=== PATIENT | male | born 1940 | race American Indian/Alaskan Native ===

== ENCOUNTER 2019-01-06 08:24 | Day surgery (SDC) | payer MEDICARE ==
[~2019-01-06 08:24] MED LIST: ceFAZolin/STERILE WATER 2 GM/20 ML SYRINGE IV NR
--- NOTE | 2019-01-06 08:51 | Anesthesia Consultation ---
Anesthesia Consult and Med Hx Date of service: 01/06/19 - Airway Anesthetic Teeth Evaluation: Dentures (upper) ROM Head & Neck: Adequate Mental/Hyoid Distance: Adequate Mallampati Class: Class II Intubation Access Assessment: Probably Good - Pulmonary Exam CTA: Yes - Cardiac Exam Cardiac Exam: RRR - Pre-Operative Health Status ASA Pre-Surgery Classification: ASA2 Proposed Anesthetic Plan: General - Pulmonary Hx Smoking: Yes (former social smoker) Hx Respiratory Symptoms: No Hx Sleep Apnea: Yes (documented but patient denies) - Cardiovascular System Hx Hypertension: Yes (documented but patient denies) Hx Heart Attack/AMI: No (>4mets functional capacity) Hx Percutaneous Transluminal Coronary Angioplasty (PTCA): No Hx Cardia Arrhythmia: Yes (was told he had occ. irreg. heart beat but no official dx) - Central Nervous System Hx Seizures: No CVA: No Hx Psychiatric Problems: No (??? SLIGHT DEMENTIA) - Gastrointestinal Hx Gastroesophageal Reflux Disease: No - Endocrine Hx Renal Disease: No Hx Liver Disease: No Hx Insulin Dependent Diabetes: No Hx Non-Insulin Dependent Diabetes: No Hx Thyroid Disease: No - Hematic Hx Anemia: No - Other Systems Hx Alcohol Use: No Hx Substance Use: Yes (MARIJUANA 1 OR 2 JOINTS A DAY) Hx Cancer: Yes (hx prostate ca) Hx Obesity: No - Additional Comments Anesthesia Medical History Comments: No hx anesthetic complications.
--- NOTE | 2019-01-06 08:52 | Anesthesia Day of Surgery ---
Anesthesia Day of Surgery - Day of Surgery Patient Examined: Yes Patient H&P Reviewed: Yes Patient is NPO: Yes
[2019-01-06] MEDS ORDERED: fentaNYL 100 MCG/2 ML INJ IV PRN (09:00)
[2019-01-06] MEDS ORDERED: LACTATED RINGERS 1,000 ML IV SCH (09:00)
[2019-01-06] MEDS ORDERED: LIDOCAINE MPF (2%) 20 MG/1 ML VIAL 5 ML ONE (09:28)
[2019-01-06] MEDS ORDERED: PROPOFOL 200 MG/20 ML VIAL IV ONE (09:29)
[2019-01-06] MEDS ORDERED: fentaNYL 100 MCG/2 ML INJ ONE (09:29)
[2019-01-06] MEDS ORDERED: ONDANSETRON 4 MG/2 ML INJ ONE (09:57)
[2019-01-06] MEDS ORDERED: dexAMETHasone 20 MG/5 ML VIAL ONE (09:57)
[2019-01-06] MEDS ORDERED: PHENYLEPHRINE/NS 1,000 MCG/10 ML SYRINGE (OR USE) IV ONE (10:03)
[2019-01-06] MEDS ORDERED: WATER FOR IRRIG STERILE 2000 ML IR ONE (10:15)
--- NOTE | 2019-01-06 10:32 | Short Stay Summary ---
Short Stay Documentation Date of service: 01/06/19 Narrative H&P: 78 yr old with prostate cancer & recurrent urethral stricture - History Past Medical History: other (prostate cancer) Past Surgical History: Other (prostate seeds 1989----[facility]) - Allergies and Medications Current Medications: Allergies No Known Allergies Allergy (Verified 01/03/19 12:53) Home Medications Medication Instructions Recorded Confirmed Last Taken Type Calcitriol [Rocaltrol] 0.25 mg PO DAILY 01/03/19 01/03/19 Unknown History Eligen B12 Tablet 1,000 mcg PO DAILY 01/03/19 01/03/19 Unknown History Iron 65 mg PO DAILY 01/03/19 01/03/19 Unknown History Multivit-Min/FA/Lycopen/Lutein 1 each PO DAILY 01/03/19 01/03/19 Unknown History [Centrum Silver Men Tablet] Nitrofurantoin [place]/M-Cryst 100 mg PO BID 01/03/19 01/03/19 Unknown History [Macrobid CAP] Anthony-3/Dha/Epa/Fish Oil [Extreme 1 cap PO DAILY 01/03/19 01/03/19 Unknown History Anthony-3 Microgel Sftgl] Sv [place] Oil 1,000 mg Softgel 1,000 mg PO DAILY 01/03/19 01/03/19 Unknown History Tamsulosin [Flomax] 0.8 mg PO DAILY 01/03/19 01/03/19 Unknown History Turmeric 1,000 mg PO DAILY 01/03/19 01/03/19 Unknown History Vitamin D (Nf) 5,000 units PO DAILY 01/03/19 01/03/19 Unknown History Active Medications Cefazolin Sodium (Ancef/Sterile Water 2 Gm/20 Ml) 2 gm IV PREOP NR Stop: 01/06/19 23:59 Fentanyl (Sublimaze) 50 mcg IV Q5MIN PRN PRN Reason: Pain , Severe (7-10) Stop: 01/06/19 19:00 Lactated Ringer's (Lactated Ringers) 1,000 mls @ 100 mls/hr IV DIRECT TOAN - Physical exam General appearance: no acute distress, well-nourished Integumentary: no rash, no growths HEENT: Atraumatic, PERRLA Lungs: Clear to auscultation Breasts: deferred Heart: Regular rate, No murmurs Gastrointestinal: normal Male Genitourinary: normal Rectal Exam: normal exam-external/orifice Extremities: no ischemia, No edema Neurological: Normal gait - Brief post op/procedure progress note Date of procedure: 01/06/19 Pre-op diagnosis: urethral stricture Post-op diagnosis: same Procedure: cysto, dviu, rpg Anesthesia: GETA Surgeon: MIRELLA VALADEZ Condition: stable - Hospital course Hospital course: sivakumar on chart - Disposition Condition at discharge: Stable Disposition: DC-01 TO HOME OR SELFCARE Short Stay Discharge Plan Follow up with: PRIMARY CARE, [Primary Care Provider] - 7 Days
--- NOTE | 2019-01-06 10:49 | Operative Report ---
PREOPERATIVE DIAGNOSIS: Urethral stricture. POSTOPERATIVE DIAGNOSIS: Urethral stricture. PROCEDURES: Cystoscopy, direct vision internal urethrotomy, bilateral retrograde pyelograms. SURGEON: Douglas Bautista MD ANESTHESIA: General. ESTIMATED BLOOD LOSS: Minimal. FLUIDS: Crystalloid. COMPLICATIONS: No complications. INDICATIONS: This 78-year-old gentleman known to our service with a history of prostate cancer, status post brachytherapy in 1989 at [facility]. He has had difficulty with urethral strictures in the past. He underwent recent urodynamic testing, which peak flow of 1 mL a second. Postvoid residual 123 mL, bladder capacity of 300 mL. Based on these findings, I recommend cystoscopy under anesthesia with dilation or DVIU. Risks, benefits and complications were explained. DESCRIPTION OF PROCEDURE: The patient was taken to the operative suite, placed in a supine position. After adequate general anesthesia, placed in a dorsal lithotomy position, prepped and draped in a sterile fashion. Pancystourethroscopy was performed with a 22-Ugandan Storz cystoscope. 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 He was also noted to have malleable penile prosthesis (semirigid), which made it difficult to do the scope. A 0.035 Glidewire was placed in the bladder, confirmed on fluoroscopy. A cut at the 12 o'clock position was performed. I was able to advance the scope. No tumors or stones were noted. Both ureteral orifices in normal position. Bilateral retrograde pyelograms were obtained with an 8-Ugandan [place] catheter and 8 mL of contrast. No filling defects or obstruction. A 16-Ugandan te-moak tip catheter was advanced over the wire. Rectal exam was benign. He was extubated and taken to recovery room. He will go home on [place] and [place] and follow up in the office. JOB# [id number] LESLIE/RYAN
--- NOTE | 2019-01-06 11:07 | Post Anesthesia Evaluation ---
- Post Anesthesia Evaluation Patient Participated: Yes Airway Patent: Yes Stable Respiratory Function: Yes Nausea/Vomiting: No Temp > 96.8F: Yes Pain Manageable: Yes Adequeate Hydration: Yes Anesthesia Complications: No
--- NOTE | 2019-01-06 15:46 | Fluoroscopy Report ---
FLUOROSCOPY RETROGRADE URETHROGRAM FLUOROSCOPY RETROGRADE UROGRAPHY HISTORY: Urethral stricture FINDINGS: 18 seconds of fluoroscopy time was provided by radiology during retrograde urography and re trograde urethrogram by the urologist. 8 fluoroscopic images are presented. Only a single retrograde urethrogram image is presented which is limited. There appears to be a high- grade stricture in the posterior urethra. The retrograde pyelogram images demonstrate normal opacification of the renal collecting systems bila terally. No filling defect or abnormal dilatation is identified. Please correlate with the procedural report as needed. IMPRESSION: Unremarkable retrograde pyelograms. High-grade urethral stricture is suspected. See above. Signer Name: Naseem Meade Jr, MD Signed: 01/06/2019 3:42 PM Workstation Name: [id number]
[2019-01-06 19:18] VITALS: BP 152/87
== END 2019-01-06 08:25 | disposition home or self-care (01) ==
LOC: OR 08:24
PROVIDERS: ATTEND Urology
DX: N35.819 Other urethral stricture, male, unspecified site (principal); N32.0 Bladder-neck obstruction; G43.909 Migraine, unspecified, not intractable, without status migrainosus; I10 Essential (primary) hypertension; G47.30 Sleep apnea, unspecified; Z87.440 Personal history of urinary (tract) infections; Z98.890 Other specified postprocedural states; Z85.46 Personal history of malignant neoplasm of prostate; Z79.899 Other long term (current) drug therapy; Z98.42 Cataract extraction status, left eye; Z98.41 Cataract extraction status, right eye
CPT/HCPCS: 52005; 52276; 74420; A4217; C1758; C1769; J0690; J1100; J2370; J2405; J2704; J3010; J7120; Q9967; 74450